=== PATIENT | male | born 1975 | race African-American/Black ===

== ENCOUNTER 2018-03-03 17:24 | Emergency (ER) | payer OTHER ==
[~2018-03-03] VITALS: Ht 190.5 cm; Wt 90.7 kg
[~2018-03-03 17:24] MED LIST: NKM
[2018-03-03] MEDS ORDERED: Morphine Sulfate 4mg/ml Inj (IV USE ONLY) IVP ONE (17:45)
[2018-03-03] MEDS ORDERED: Ketorolac 30mg Inj IV ONE (17:45)
[2018-03-03 18:13] VITALS: BP 132/77
[2018-03-03] MEDS ORDERED: ACETAMINOPHEN-1 EAC1 ORAL (18:39)
[2018-03-03] MEDS ORDERED: IBUPROFEN600 MG ORAL (18:39)
[2018-03-03 18:50] VITALS: BP 132/77
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
== END 2018-03-03 19:00 | disposition home or self-care (01) ==
LOC: EDBD 17:24 → EMR 18:01
DX: S40.012A Contusion of left shoulder, initial encounter (principal); V43.52XA Car driver injured in collision with other type car in traffic accident, initial encounter; Y92.410 Unspecified street and highway as the place of occurrence of the external cause; J45.909 Unspecified asthma, uncomplicated
CPT/HCPCS: 73030; 96374; 96375; 99284; J1885; J2270